=== PATIENT | male | born 1995 | race Caucasian/White ===

== ENCOUNTER 2024-06-26 10:45 | Emergency (ER) | payer OTHER ==
[2024-06-26 10:55] VITALS: TEMP 98.4
--- NOTE | 2024-06-26 12:05 | ED ---
Allergic Reaction HPI - General Chief complaint: Allergic Reaction Stated complaint: Medication Issue Time Seen by Provider: 06/26/24 11:43 Source: patient, RN notes reviewed Mode of arrival: ambulatory Limitations: no limitations - History of Present Illness Initial Comments: 29-year-old male presenting for abscess to right lower abdomen. States he was seen at urgent care 3 days ago for this where they prescribed him Keflex and Bactrim. States the infection is significantly improving however since he started the antibiotics he has been experiencing headache, nausea, and cold sweats and believes this is due to a allergic reaction to the antibiotics. Denies rash, chest pain, shortness of breath, lip or tongue swelling. Denies history of diabetes. Denies involvement of testicles. - Related Data Allergies Allergy/AdvReac Type Severity Reaction Status Date / Time No Known Allergies Allergy Verified 06/26/24 10:55 Review of Systems ROS Statement: Those systems with pertinent positive or pertinent negative responses have been documented in the HPI. ROS Other: All systems not noted in ROS Statement are negative. Past Medical History Past Medical History: No Reported History History of Any Multi-Drug Resistant Organisms: None Reported Past Surgical History: Appendectomy Past Psychological History: No Psychological Hx Reported Smoking Status: Never smoker Past Alcohol Use History: Occasional Past Drug Use History: Marijuana General Exam Limitations: no limitations General appearance: alert, in no apparent distress Head exam: Present: atraumatic, normocephalic, normal inspection GI/Abdominal exam: Present: soft, normal bowel sounds, other (4 x 2 cm fluctuant, erythematous mass with no active drainage. No testicular swelling or erythema). Absent: distended, tenderness, guarding, rebound, rigid Neurological exam: Present: alert, oriented X3 Psychiatric exam: Present: normal affect, normal mood Skin exam: Present: warm, dry, intact, normal color. Absent: rash Course Vital Signs 06/26/24 10:53 Temperature 98.4 F Pulse Rate 66 Respiratory 20 Rate Blood Pressure 126/87 O2 Sat by Pulse 99 Oximetry Procedures - Incision & Drainage Consent Obtained: verbal consent Indication: Abscess Site: abdomen Size (cm): 4 Sterile Field Used?: No Scalpel Used: #11 Ultrasound used: No Needle Aspiration Performed?: No Irrigation Performed?: No I&D Drainage Obtained: Pus, Blood Culture Obtained?: No Patient Tolerated Procedure: well, no complications Medical Decision Making - Medical Decision Making Was pt. sent in by a medical professional or institution (, [place], [facility], urgent care, hospital, or fdc...) When possible be specific @ -No Did you speak to anyone other than the patient for history (EMS, parent, family, police, friend...)? What history was obtained from this source @ -No Did you review nursing and triage notes (agree or disagree)? Why? @ -I reviewed and agree with nursing and triage notes Were old charts reviewed (outside hosp., previous admission, EMS record, old EKG, old radiological studies, urgent care reports/EKG's, fdc records)? Report findings @ -No old charts were reviewed Differential Diagnosis (chest pain, altered mental status, abdominal pain women, abdominal pain men, vaginal bleeding, weakness, fever, dyspnea, syncope, headache, dizziness, GI bleed, back pain, seizure, CVA, palpatations, mental health, musculoskeletal)? @ -Differential Musculoskeletal Muscular strain, contusion, ligament sprain, fracture, arthritis, septic arthritis, bursitis, cellulitis, muscle spasm, nerve compression, DVT, arterial occlusion, herpes zoster, electrolyte abnormality, tumor.... This is not meant to be in all inclusive list EKG interpreted by me (3pts min.). @ -None X-rays interpreted by me (1pt min.). @ -None done CT interpreted by me (1pt min.). @ -None done U/S interpreted by me (1pt. min.). @ -None done What testing was considered but not performed or refused? (CT, X-rays, U/S, labs)? Why? @ -None What meds were considered but not given or refused? Why? @ -None Did you discuss the management of the patient with other professionals (professionals i.e. MALAIKA Maloney, [employer], lab, RT, psych nurse, rn social services, capacity planner, teacher, transportation officer, case resource manager)? Give summary @ -No Was smoking cessation discussed for >3mins.? @ -No Was critical care preformed (if so, how long)? @ -No Were there social determinants of health that impacted care today? How? (Homelessness, low income, unemployed, alcoholism, drug addiction, transportation, low edu. Level, literacy, decrease access to med. care, assisted, rehab)? @ -No Was there de-escalation of care discussed even if they declined (Discuss DNR or withdrawal of care, Hospice)? DNR status @ -No What co-morbidities impacted this encounter? (DM, HTN, Smoking, COPD, CAD, Cancer, CVA, ARF, Chemo, Hep., AIDS, mental health diagnosis, sleep apnea, morbid obesity)? @ -None Was patient admitted / discharged? Hospital course, mention meds given and route, prescriptions, significant lab abnormalities, going to OR and other pertinent info. @ -Discharge. 29-year-old male presenting for abscess right lower abdomen. Patient has been taking Keflex and Bactrim for 3 days and reports significant improvement of the abscess however is experiencing side effects from the antibiotics such as headache, nausea/vomiting. Patient is afebrile. On examination there is a fluctuant abscess present to right lower abdomen with no testicular involvement. I&D successfully performed with no complications. Patient was provided with Zofran starter pack. Advised to continue Keflex and Bactrim as prescribed. I recommended warm compresses 3 times daily. Appropriate return precautions and follow-up care discussed. Case was discussed with my ED attending Dr. Palmer Undiagnosed new problem with uncertain prognosis? @ -No Drug Therapy requiring intensive monitoring for toxicity (Heparin, Nitro, Insulin, Cardizem)? @ -No Were any procedures done? @ -Yes, incision and drainage of abscess Diagnosis/symptom? @ -Abscess Acute, or Chronic, or Acute on Chronic? @ -Acute Uncomplicated (without systemic symptoms) or Complicated (systemic symptoms)? @ -Uncomplicated Side effects of treatment? @ -No Exacerbation, Progression, or Severe Exacerbation? @ -No Poses a threat to life or bodily function? How? (Chest pain, [place], VT, pneumonia, PE, COPD, DKA, ARF, appy, cholecystitis, CVA, Diverticulitis, Homicidal, Suicidal, threat to staff... and all critical care pts) @ -No Disposition Clinical Impression: Abscess Disposition: HOME SELF-CARE Condition: Stable Instructions (If sedation given, give patient instructions): Abscess Incision and Drainage (ED) Additional Instructions: Continue Keflex and Bactrim as prescribed. Apply warm compresses to affected area 3 times daily. Use Zofran as needed for nausea and ibuprofen/Tylenol as needed for pain. Follow-up in 3 to 5 days for reevaluation. Please return to the Emergency Department if symptoms worsen or any other concerns. Is patient prescribed a controlled substance at d/c from ED?: No Referrals: Angie Miller [facility] [REFERRING] - 1-2 days Time of Disposition: 13:24
[2024-06-26] MEDS: ONDANSETRON ODT 4 MG TAB PO STA (13:41)
[2024-06-26] MEDS: IBUPROFEN 800 MG TAB PO STA (13:41)
[2024-06-26] MEDS: ONDANSETRON 4 MG ODT STARTER PACK 2 TAB BTL PO STA (13:42)
[2024-06-26 13:45] VITALS: BP 120/82; PULSE 87; RESP 16
== END 2024-06-26 13:48 | disposition home or self-care (01) ==
LOC: EC 10:45
DX: L02.211 Cutaneous abscess of abdominal wall (principal)
CPT/HCPCS: 99283; 10060; S0119